=== PATIENT | male | born 1955 | race Caucasian/White ===

== ENCOUNTER 2022-06-23 05:28 | Day surgery (SDC) | payer OTHER ==
[2022-06-23] VITALS (21 sets, daily range): BP systolic 122–165; BP diastolic 67–93; PULSE 70–90; TEMP 97.6–99.1
[~2022-06-23] VITALS: Ht 175.3 cm; Wt 76.0 kg
[~2022-06-23 05:28] MED LIST: ASPIRIN E.C. 8181 MG PO; COLACE 100100 MG/CAP PO; FLOMAX 0.40.4 MG/CAP PO; NORCO 325 MG-51 TAB PO
[2022-06-23] MEDS ORDERED: COLACE 100100 MG/CAP PO (06:03)
--- NOTE | 2022-06-23 11:20 | NUR ---
PATIENT RETURNED TO ROOM 2 FROM RADIOLOGY AT 0820. TEGADERM TO RIGHT BACKSIDE, COVERING WIRE ACCESS SITE. PATIENT DROWSY AND ORIENTED, DENIES PAIN AND NAUSEA. BREATHING REGULAR AND UNLABORED. BLOOD PRESSURE 146/76, 96% SPO2, HEART RATE 81. PATIENT LAYING PRONE ON CART BED. AT 0908, PATIENT COMPLAINED OF PAIN AT TIP OF PENIS. PATIENT STOOD UP AND VOIDED 200MLS OF BLOOD TINGED URINE. PATIENT STATED THAT THE PAIN WENT AWAY AFTER VOIDING. AT 1030, PATIENT CALLED NURSE AND COMPLAINED OF BLADDER AND RIGHT BACKSIDE PAIN, RATING 8/10. NURSING ATTEMPTED TO REACH AND GOT AN ORDER FOR MORPHINE. SEE EMAR FOR MEDICATION GIVEN. PATIENT AGITATED AND COMPLAINING OF WAIT TIME FOR PROCEDURE, STATING THAT HE WANTED TO SPEAK WITH . IN PATIENT ROOM AT 1057, PATIENT STATED PAIN HAD IMPROVED WITH MORPHINE. SEE ORDERS FOR VERBAL ORDER FROM FOR LEVSIN. SEE EMAR FOR ADMINISTRATION OF LEVSIN. AT 1110 PATIENT STATED PAIN WAS 5/10 AND TOLERABLE.
[2022-06-23] MEDS ORDERED: NORCO 325 MG-51 TAB PO (12:28)
--- NOTE | 2022-06-23 16:47 | NUR ---
PT TO ROOM 325 PER BED WITH REPORT FROM LANDRY SHIP BOAT OR BARGE MATE @8998. PT IS A/O X3, C/O BLADDER SPASM. LANDRY GAVE LEVSIN @1535, KOWALSKI TO DD WITH SHAH RED URINE IN BAG, NO CLOTS OBSERVED. PT DENIES NEEDS AT THIS TIME.
--- NOTE | 2022-06-23 22:34 | NUR ---
SHIFT REPORT FROM BRANDON [place]. PATIENT IN BED ON ROOM ENTRY. C/O PAIN AND SCHEDULED TYLENOL GIVEN. REQUESTS ADDITIONAL PAIN MED, JAMES AND LEVSIN DUE AT 2200 AND GIVEN PER EMAR. HS MEDS PER EMAR. MEGHANA TO АННА WITH BLOODY OUTPUT. POSTOPS COMPLETED. DENIES ADDITIONAL NEEDS. CALL LIGHT IN REACH.
[2022-06-24 03:47] VITALS: BP 134/66; PULSE 63; TEMP 97.5
[2022-06-24 07:19] VITALS: BP 126/54; PULSE 67; TEMP 97.7
--- NOTE | 2022-06-24 09:52 | NUR ---
Initial visit; Patient friendly former gentleman who lives in [place] close to his daughter and has a good relationship with her and his grandson. He spends a lot of time with them both. He states that his grandson has become a Hinduism and they study the Bible together on line. Patient thanked Executive Assistant To General Counsel for listening and offering prayer and God's blessings.
[2022-06-24 11:12] VITALS: BP 125/60; PULSE 76; TEMP 94.5
--- NOTE | 2022-06-24 12:41 | NUR ---
DISCHARGE INSTRUCTIONS REVIEWED WITH PT AND DAUGHTER. QUESTIONS ANSWERED. REMOVED INT PT TOLERATED WELL. PT LEFT UNIT AMBULATORY WITH DAUGHTER.
== END 2022-06-24 12:42 | disposition home or self-care (01) ==
LOC: SDCO 05:28 → COL.RAD 06:30 → EDSTATUS 06:30 → SURG 16:30 → SDCO 06-24 12:42
DX: N20.0 Calculus of kidney (principal); F17.290 Nicotine dependence, other tobacco product, uncomplicated
CPT/HCPCS: OP; A4314; C1726; C1729; C1769; C1894; C2617; J0690; J1100; J2250; J2270; J2405; J2704; J3010; J7120; Q9967